=== PATIENT | male | born 1960 | race Caucasian/White ===

== ENCOUNTER 2017-01-29 10:42 | Emergency (ER) | payer OTHER ==
[2017-01-29 10:47] VITALS: BP 159/96; PULSE 69; RESP 18; TEMP 99; O2SAT 95
--- NOTE | 2017-01-29 12:01 | EDPHY ---
H & P Time Seen by Provider: 01/29/17 11:13 HPI/ROS: CHIEF COMPLAINT: Left hand injury. HISTORY OF PRESENT ILLNESS: 56-year-old male presents to the emergency department with left hand injury. The patient accidentally sustained puncture wound to the left hand. The incident happened just prior to arrival. He is right-hand dominant. He believes his tetanus shot is current. Denies any other trauma or injury. ROS: Denies numbness or tingling in his fingers, retained foreign body, pain in his left wrist. 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 Normal sensation to light touch with normal 2 point discrimination. No palpable bony tenderness. Full range of motion of his fingers. Normal sensation to light touch with normal 2 point discrimination. No evidence of retained foreign body. Constitutional: Initial Vital Signs Temperature (C) 37.2 C 01/29/17 10:44 Heart Rate 69 01/29/17 10:44 Respiratory Rate 18 01/29/17 10:44 Blood Pressure 159/96 H 01/29/17 10:44 O2 Sat (%) 95 01/29/17 10:44 O2 Delivery Mode Room Air Allergies/Adverse Reactions: No Known Allergies Allergy (Unverified 01/29/17 10:47) MDM/Departure - MDM Procedures: Laceration repair. Verbal consent was obtained from the patient. The 3 cm laceration on the left hand was anesthetized using 1% lidocaine with epinephrine. The wound was irrigated with saline, draped and explored to its base with a gloved finger. There were no deep structures involved. No tendon injury was identified. The wound was repaired with 6 sutures. The wound repair was simple. The procedure was performed by myself. ED Course/Re-evaluation: 56-year-old male presents to the emergency department with laceration to his left hand. The wound was repaired, see procedure note. Patient was given wound care precautions. - Depart Disposition: Home, Routine, Self-Care Clinical Impression: Laceration of left hand Qualifiers: Encounter type: initial encounter Foreign body presence: without foreign body Qualified Code(s): S61.412A - Laceration without foreign body of left hand, initial encounter Condition: Good Instructions: Care For Your Stitches (ED), Laceration (ED), Acute Wounds (ED) Additional Instructions: Wound Care Follow-Up: Removal of sutures in 10 days. Suture removal is complimentary in uncomplicated cases. Infection or abnormal findings would require reevaluation by the MD. In that case, you may be billed. Return if he notices any signs or symptoms of infection such as redness, swelling, increased pain, fever, purulent drainage. Ibuprofen 600 mg every 8 hours as needed for pain. Referrals: EDGAR TELLEZ [Primary Care Provider] - As per Instructions
== END 2017-01-29 12:18 | disposition home or self-care (01) ==
PROC: 0HQGXZZ Repair Left Hand Skin, External Approach (ICD-10-PCS; principal; 2017-01-29)
DX: S61.412A Laceration without foreign body of left hand, initial encounter (principal); W26.8XXA Contact with other sharp object(s), not elsewhere classified, initial encounter

== ENCOUNTER → 2018-07-05 | Outpatient (CLI) | payer OTHER | LOC: BMCIMAGING 16:24 | PROVIDERS: ATTEND Podiatrist Foot & Ankle Surgery | DX: L97.511 Non-pressure chronic ulcer of other part of right foot limited to breakdown of skin (principal) ==